=== PATIENT | male | born 1990 | race Two or more races ===

== ENCOUNTER 2024-01-13 06:40 | Emergency (ER) | payer OTHER ==
[2024-01-13 06:52] VITALS: BP 134/85; PULSE 79; RESP 20; TEMP 97.2; BMI 50.2
[2024-01-13] MEDS: KETOROLAC TROMETHAMINE 30 MG/1 ML VIAL IM ONE (07:43)
[2024-01-13] MEDS: LIDOCAINE 4% PATCH TP ONE (07:43)
[2024-01-13] MEDS: ACETAMINOPHEN 500 MG TABLET (FP) PO ONE (07:44)
[2024-01-13 08:17] LABS: PH,URINE 5.5 (5.0-8.0); URINE APPEARANCE CLEAR; URINE BILIRUBIN NEGATIVE (NEGATIVE); URINE COLOR DK YELLOW; URINE GLUCOSE (UA) NEGATIVE (NEGATIVE); URINE KETONE TRACE (NEGATIVE); URINE LEUK ESTERASE NEGATIVE (NEGATIVE); URINE NITRITE NEGATIVE (NEGATIVE); URINE PROTEIN TRACE (NEGATIVE)
== END 2024-01-13 10:31 | disposition home or self-care (01) ==
LOC: JER 06:40
PROC: 3E0133Z Introduction of Anti-inflammatory into Subcutaneous Tissue, Percutaneous Approach (ICD-10-PCS; principal; 2024-01-13)
DX: M54.50 Low back pain, unspecified (principal)
CPT/HCPCS: 81003; 87086; 99284-25

== ENCOUNTER 2024-01-31 22:40 | Emergency (ER) | payer OTHER ==
[2024-01-31 22:44] VITALS: BP 146/92; PULSE 89; RESP 20; TEMP 97.9; BMI 48.8
[2024-01-31 23:11] LABS: HEMATOCRIT 44.6 % (35.4-49); HEMOGLOBIN 15.1 GM/dL (11.7-16.9); MCH 29.9 pg (25.7-33.7); MCHC 33.9 g/dl (32.0-35.9); MEAN CELL VOLUME 88.1 fl (80-96); MEAN PLT VOLUME 8.6 fl (7.5-11.1); PLATELET COUNT 344 10^3/uL (134-434); RBC 5.06 M/mm3 (4.00-5.60); RDW 14.1 % (11.9-15.9); WHITE BLOOD COUNT 8.5 K/mm3 (4.0-10.0)
[2024-01-31] MEDS ORDERED: ACETAMINOPHEN INJECTION 100 ML ONE (23:27)
[2024-01-31] MEDS: ACETAMINOPHEN 500 MG TABLET (FP) PO ONE (23:27)
[2024-01-31] MEDS ORDERED: ONDANSETRON 4 MG/2 ML VIAL ONE (23:27)
[2024-01-31] MEDS ORDERED: morphine SULFATE 4 MG/ML VIAL ONE (23:30)
[2024-01-31] MEDS ORDERED: KETOROLAC TROMETHAMINE 30 MG/1 ML VIAL ONE (23:31)
[2024-01-31] MEDS: ONDANSETRON 4 MG/2 ML VIAL IVPUSH ONE (23:32)
[2024-01-31] MEDS: morphine CARPU-JECT 4 MG/1 ML DISP.SYRIN IVPUSH ONE (23:35)
[2024-01-31 23:37] LABS: ALBUMIN 4.6 g/dl (3.4-5.0); BLOOD UREA NITROGEN 8.6 mg/dL (7-18)
[2024-01-31 23:40] LABS: CREATININE 1.1 mg/dL (0.55-1.3)
[2024-01-31] MEDS: KETOROLAC TROMETHAMINE 30 MG/1 ML VIAL IVPUSH ONE (23:40)
[2024-01-31 23:42] LABS: BILIRUBIN,TOTAL 0.6 mg/dL (0.2-1); TOT PROT 7.7 g/dl (6.4-8.2)
[2024-01-31] MEDS: ACETAMINOPHEN 1000 MG/100 ML BAG IVPB ONE (23:51)
[2024-01-31 23:53] LABS: EPI CELLS 8 /uL (0-25.1); HYALINE CASTS 2 /uL (0-3.1); PH,URINE 5.5 (5.0-8.0); URINE APPEARANCE CLOUDY; URINE BACTERIA 60 /uL (0-1359); URINE BILIRUBIN NEGATIVE (NEGATIVE); URINE COLOR YELLOW; URINE GLUCOSE (UA) NEGATIVE (NEGATIVE); URINE KETONE 3+ (NEGATIVE); URINE LEUK ESTERASE NEGATIVE (NEGATIVE); URINE NITRITE NEGATIVE (NEGATIVE); URINE PROTEIN 1+ (NEGATIVE); URINE RBC 302 /uL (0-23.9); URINE WBC 46 /uL (0-25.8)
== END 2024-02-01 03:50 | disposition home or self-care (01) ==
LOC: JER 22:40
PROC: 3E033NZ Introduction of Analgesics, Hypnotics, Sedatives into Peripheral Vein, Percutaneous Approach (ICD-10-PCS; principal; 2024-01-31)
PROC: 3E0333Z Introduction of Anti-inflammatory into Peripheral Vein, Percutaneous Approach (ICD-10-PCS; 2024-01-31)
PROC: 3E033NZ Introduction of Analgesics, Hypnotics, Sedatives into Peripheral Vein, Percutaneous Approach (ICD-10-PCS; 2024-01-31)
PROC: 3E033GC Introduction of Other Therapeutic Substance into Peripheral Vein, Percutaneous Approach (ICD-10-PCS; 2024-01-31)
DX: N13.2 Hydronephrosis with renal and ureteral calculous obstruction (principal); R10.11 Right upper quadrant pain; R10.13 Epigastric pain; R10.31 Right lower quadrant pain; R39.15 Urgency of urination; R33.9 Retention of urine, unspecified
CPT/HCPCS: 36415; 74176-TC; 76870-TC; 80053; 81003; 85027; 87086; 99284-25; J0131